=== PATIENT | male | born 1960 | race Caucasian/White ===

== ENCOUNTER 2017-10-04 10:25 | Inpatient (IN) ==
[~2017-10-04 10:25] MED LIST: ASPIRIN 325 MG TABLET PO ONE; DIAZEPAM 5 MG TABLET PO ONE; MAGNESIUM SULF RIDER 2 GM in PREMIX 1 EACH IV PRN; POTASSIUM CHLORIDE RIDER 10 MEQ in PREMIX 1 EACH IV PRN; diphenhydrAMINE CAP 25 MG CAPSULE PO ONE
[2017-10-04] MEDS: DEXTROSE 5% NACL 0.45% 1,000 ML IV SCH ×3 (11:30→21:51)
[2017-10-04 11:33] LABS: PT Patient Result 10.5 SECS
[2017-10-04] MEDS ORDERED: diphenhydrAMINE CAP 25 MG CAPSULE ONE (11:49)
[2017-10-04] MEDS ORDERED: DIAZEPAM 5 MG TABLET ONE (11:49)
[2017-10-04] MEDS ORDERED: HEPARIN/NACL 0.9% 2 UNITS/ML 1,000 ML IV ONE (13:05)
[2017-10-04] MEDS ORDERED: VERAPAMIL 5 MG/2 ML VIAL ONE (13:48)
[2017-10-04] MEDS ORDERED: fentaNYL 100 MCG/2 ML VIAL ONE (13:48)
[2017-10-04] MEDS ORDERED: MIDAZOLAM 2 MG/2 ML VIAL ONE (13:48)
[2017-10-04] MEDS ORDERED: NITROGLYCERIN DRIP 50 MG/250 ML BOTTLE IV ONE (13:48)
[2017-10-04] MEDS ORDERED: ENOXAPARIN 60 MG/0.6 ML SYRINGE ONE (14:19)
[2017-10-04] MEDS ORDERED: NITROGLYCERIN SL 0.4 MG TABLET SL PRN (15:14)
[2017-10-04] MEDS ORDERED: BISACODYL 5 MG TABLET PO PRN (15:35)
[2017-10-04] MEDS ORDERED: ACETAMINOPHEN 325 MG TABLET PO PRN (15:35)
[2017-10-04] MEDS ORDERED: ZALEPLON 5 MG CAPSULE PO PRN (15:35)
[2017-10-04] MEDS ORDERED: ONDANSETRON 4 MG/2 ML VIAL IV PRN (15:35)
[2017-10-04] MEDS: ENOXAPARIN 100 MG/ML SYRINGE SUBCUT SCH (17:35)
[2017-10-04] MEDS: METOPROLOL SUCCINATE XL 50 MG TABLET PO SCH (20:47)
[2017-10-04] MEDS: RANOLAZINE 500 MG TABLET PO SCH (20:47)
[2017-10-04] MEDS: PANTOPRAZOLE 40 MG TABLET PO SCH (20:47)
[2017-10-05] MEDS: DEXTROSE 5% NACL 0.45% 1,000 ML IV SCH ×2 (01:19→11:59)
[2017-10-05] MEDS: ENOXAPARIN 100 MG/ML SYRINGE SUBCUT SCH (05:27)
[2017-10-05 05:37] LABS: Basophils # 0.1 10*3/uL (0.0-0.2); Basophils % 0.6 % (0.0-0.8); Eosinophils # 0.6 10*3/uL (0.0-0.87); Eosinophils % 7.2 % (0.00-10.9); Hematocrit 43.9 VOL% (42.0-52.0); Hemoglobin 15.2 GM/DL (14.0-18.0); Immature Granulocytes % 0.4 %; Immature Granulocytes Absolute 0.03 #; Lymphocytes # 2.7 10*3/uL (1.4-4.0); Mean Corpuscular HGB Conc 34.6 GM/DL (32-36); Mean Corpuscular Hemoglobin 33 PG (27-34); Mean Corpuscular Volume 96.1 FL (87-102); Monocytes # 0.7 10*3/uL (0.11-0.8); Monocytes % 8.1 % (1.7-12.7); Neutrophils # 4.1 10*3/uL (1.4-7.4); Neutrophils % 50.7 % (38.7-73.9); Platelet Count 200 T/CUMM (130-400); Red Blood Count 4.57 MC/CUMM (3.8-5.5); Red Cell Distribution Width 13.4 % (9.3-17.3); White Blood Count 8.1 T/CUMM (4-12)
[2017-10-05] MEDS ORDERED: diphenhydrAMINE CAP 25 MG CAPSULE PO ONE (05:45)
[2017-10-05] MEDS ORDERED: DIAZEPAM 5 MG TABLET PO ONE (05:45)
[2017-10-05 06:11] LABS: Calcium 8.7 MG/DL (8.5-10.1); Osmolality,Calculated 283.1 MOS/KG (273-304)
[2017-10-05] MEDS: MULTIVITAMIN (CENTRUM) TABLET PO SCH (08:44)
[2017-10-05] MEDS: COENZYME Q10 100 MG CAPSULE PO SCH (08:44)
[2017-10-05] MEDS: RANOLAZINE 500 MG TABLET PO SCH ×2 (08:44→20:49)
[2017-10-05] MEDS: CHOLECALCIFEROL 1,000 UNIT TABLET PO SCH (08:44)
[2017-10-05] MEDS: ASPIRIN EC 81 MG TABLET PO SCH (08:44)
[2017-10-05] MEDS: METOPROLOL SUCCINATE XL 50 MG TABLET PO SCH ×2 (08:45→20:49)
[2017-10-05] MEDS: CLOPIDOGREL 75 MG TABLET PO SCH (08:45)
[2017-10-05] MEDS: amLODIPine 5 MG TABLET PO SCH (08:45)
[2017-10-05] MEDS: PITAVASTATIN 2 MG TABLET PO SCH (08:49)
[2017-10-05] MEDS: PANTOPRAZOLE 40 MG TABLET PO SCH ×2 (08:53→20:49)
[2017-10-05] MEDS ORDERED: COENZYME Q10 100 MG PO SCH (09:00)
[2017-10-05] MEDS ORDERED: ISOSORBIDE MONONITRATE 30 MG TABLET PO SCH (09:00)
[2017-10-05] MEDS ORDERED: diphenhydrAMINE CAP 50 MG CAPSULE ONE (12:24)
[2017-10-05] MEDS ORDERED: DIAZEPAM 5 MG TABLET ONE (12:25)
[2017-10-05] MEDS ORDERED: HEPARIN/NACL 0.9% 2 UNITS/ML 1,000 ML IV ONE (12:40)
[2017-10-05] MEDS ORDERED: MIDAZOLAM 2 MG/2 ML VIAL ONE ×2 (12:40→13:52)
[2017-10-05] MEDS ORDERED: fentaNYL 100 MCG/2 ML VIAL ONE (12:40)
[2017-10-05] MEDS ORDERED: BIVALIRUDIN 250 MG VIAL IV ONE ×2 (12:42→13:45)
[2017-10-05] MEDS ORDERED: HEPARIN/NACL 0.9% 2 UNITS/ML 500 ML IV ONE (13:03)
[2017-10-05] MEDS ORDERED: CLOPIDOGREL 300 MG TABLET ONE (14:16)
[2017-10-05] MEDS ORDERED: SODIUM CHLORIDE 0.45% 1,000 ML IV SCH (15:00)
[2017-10-06 06:11] LABS: Basophils # 0.1 10*3/uL (0.0-0.2); Basophils % 0.5 % (0.0-0.8); Eosinophils # 0.5 10*3/uL (0.0-0.87); Eosinophils % 4.7 % (0.00-10.9); Hematocrit 43.4 VOL% (42.0-52.0); Hemoglobin 14.8 GM/DL (14.0-18.0); Immature Granulocytes % 0.5 %; Immature Granulocytes Absolute 0.05 #; Lymphocytes % 20.1 % (21.2-54.2); Mean Corpuscular HGB Conc 34.1 GM/DL (32-36); Mean Corpuscular Hemoglobin 33 PG (27-34); Mean Corpuscular Volume 95.6 FL (87-102); Mean Platelet Volume 9.8 FL (9.6-12.0); Monocytes # 0.8 10*3/uL (0.11-0.8); Monocytes % 7.9 % (1.7-12.7); Neutrophils # 6.5 10*3/uL (1.4-7.4); Neutrophils % 66.3 % (38.7-73.9); Platelet Count 201 T/CUMM (130-400); Red Blood Count 4.54 MC/CUMM (3.8-5.5); Red Cell Distribution Width 13.4 % (9.3-17.3); White Blood Count 9.8 T/CUMM (4-12)
[2017-10-06 06:32] LABS: Calcium 8.4 MG/DL (8.5-10.1); Osmolality,Calculated 280.3 MOS/KG (273-304); Potassium 4.1 MMOL/L (3.5-5.1)
[2017-10-06] MEDS: COENZYME Q10 100 MG CAPSULE PO SCH (08:29)
[2017-10-06] MEDS: PITAVASTATIN 2 MG TABLET PO SCH (08:29)
[2017-10-06] MEDS: PANTOPRAZOLE 40 MG TABLET PO SCH (08:30)
[2017-10-06] MEDS: MULTIVITAMIN (CENTRUM) TABLET PO SCH (08:30)
[2017-10-06] MEDS: CHOLECALCIFEROL 1,000 UNIT TABLET PO SCH (08:30)
[2017-10-06] MEDS: RANOLAZINE 500 MG TABLET PO SCH (08:30)
[2017-10-06] MEDS: CLOPIDOGREL 75 MG TABLET PO SCH (08:30)
[2017-10-06] MEDS: METOPROLOL SUCCINATE XL 50 MG TABLET PO SCH (08:30)
[2017-10-06] MEDS: amLODIPine 5 MG TABLET PO SCH (08:30)
[2017-10-06] MEDS: ASPIRIN EC 81 MG TABLET PO SCH (08:30)
[2017-10-06 08:34] VITALS: BP 110/80
== END 2017-10-06 12:40 | disposition home or self-care (01) | DRG 246 ==
LOC: N.TELEN 10:25 → N.CL 10:25 → N.TELEN 15:57
PROVIDERS: ADMIT Internal Medicine Interventional Cardiology; ATTEND Internal Medicine Cardiovascular Disease
PROC: CLCCHCL (ICD-10-PCS; 2017-10-04 15:15)

== ENCOUNTER 2018-01-24 09:26 | Observation (INO) ==
[2018-01-24 10:05] LABS: Basophils # 0.1 10*3/uL (0.0-0.2); Basophils % 0.8 % (0.0-0.8); Eosinophils # 0.5 10*3/uL (0.0-0.87); Eosinophils % 4.7 % (0.00-10.9); Hematocrit 44.2 VOL% (42.0-52.0); Hemoglobin 15.5 GM/DL (14.0-18.0); Immature Granulocytes % 0.4 %; Immature Granulocytes Absolute 0.04 #; Lymphocytes # 2.6 10*3/uL (1.4-4.0); Lymphocytes % 25.1 % (21.2-54.2); Mean Corpuscular HGB Conc 35.1 GM/DL (32-36); Mean Corpuscular Hemoglobin 32 PG (27-34); Mean Corpuscular Volume 90.8 FL (87-102); Mean Platelet Volume 9.2 FL (9.6-12.0); Monocytes # 1.2 10*3/uL (0.11-0.8); Monocytes % 11.9 % (1.7-12.7); Neutrophils # 5.9 10*3/uL (1.4-7.4); Neutrophils % 57.1 % (38.7-73.9); Platelet Count 220 T/CUMM (130-400); Red Blood Count 4.87 MC/CUMM (3.8-5.5); Red Cell Distribution Width 12.4 % (9.3-17.3); White Blood Count 10.3 T/CUMM (4-12)
[2018-01-24 10:18] LABS: INR 0.9; Partial Thromboplastin Time 26.4 SECS (0-40)
[2018-01-24 10:53] LABS: Alanine Aminotransferase 59 U/L (16-61); Albumin 3.9 G/DL (3.4-5.0); Alkaline Phosphatase 104 U/L (45-117); Aspartate Amino Transferase 37 U/L (0-37); Blood Urea Nitrogen 13 MG/DL (7-18); Glucose 115 MG/DL (74-106); Osmolality,Calculated 275.7 MOS/KG (273-304); Potassium 3.9 MMOL/L (3.5-5.1); Sodium 138 MMOL/L (136-145); Total Protein 8.7 G/DL (6.4-8.3); Troponin I < 0.015 NG/ML (0.00-0.045)
[2018-01-24 10:55] LABS: Apearance,Urine CLEAR (Clear); Bilirubin,Urine Negative (Negative); Blood, Urine Negative (Negative); Glucose,Urine (UA) Negative (Negative); Ketones,Urine Negative (Negative); Nitrite,Urine Negative (Negative); Protein,Urine Negative; RBC,Urine <1 /HPF (0-4); Urine Color Yellow (Yellow); Urine Specific Gravity 1.016 (1.001-1.035); Urine Urobilinogen < 2.0 EU/DL (0.2-1.0); WBC,Urine 1 /HPF (0-6)
[2018-01-24 11:00] LABS: Barbiturates Screen,Urine Negative (Negative); Benzodiazepines Screen,Urine Negative (Negative); Cannabinoid Screen,Urine Negative (Negative); Opiate Screen,Urine Negative (Negative); Phencyclidine Screen,Urine Negative (Negative)
[2018-01-24] MEDS ORDERED: MAGNESIUM SULF RIDER 4 GM in PREMIX 1 EACH IV PRN ×2 (14:19→15:31)
[2018-01-24] MEDS ORDERED: BISACODYL 5 MG TABLET PO PRN (14:19)
[2018-01-24] MEDS ORDERED: diphenhydrAMINE CAP 25 MG CAPSULE PO PRN (14:19)
[2018-01-24] MEDS ORDERED: MAGNESIUM SULF RIDER 2 GM in PREMIX 1 EACH IV PRN (14:19)
[2018-01-24] MEDS ORDERED: DOCUSATE SODIUM 100 MG CAPSULE PO PRN (14:19)
[2018-01-24] MEDS ORDERED: ONDANSETRON 4 MG/2 ML VIAL IV PRN (14:19)
[2018-01-24] MEDS ORDERED: ZALEPLON 5 MG CAPSULE PO PRN (14:19)
[2018-01-24] MEDS ORDERED: POTASSIUM CHLORIDE 20 MEQ TABLET PO PRN (14:19)
[2018-01-24] MEDS ORDERED: ACETAMINOPHEN 325 MG TABLET PO PRN (14:19)
[2018-01-24] MEDS ORDERED: guaiFENesin/DM ER 600-30 MG TABLET PO PRN (14:19)
[2018-01-24] MEDS ORDERED: ENOXAPARIN 40 MG/0.4 ML SYRINGE SUBCUT SCH ×2 (14:30→21:00)
[2018-01-24] MEDS ORDERED: NITROGLYCERIN SL 0.4 MG TABLET SL PRN ×2 (14:55→15:31)
[2018-01-24 17:02] LABS: Troponin I < 0.015 NG/ML (0.00-0.045)
[2018-01-24] MEDS: PANTOPRAZOLE 40 MG TABLET PO SCH (18:34)
[2018-01-24] MEDS ORDERED: PITAVASTATIN CALCIUM 4 MG PO SCH (21:00)
[2018-01-24] MEDS ORDERED: ISOSORBIDE MONONITRATE 30 MG TABLET PO SCH ×2 (21:00)
[2018-01-24] MEDS ORDERED: METOPROLOL SUCCINATE XL 50 MG TABLET PO SCH (21:00)
[2018-01-24] MEDS ORDERED: PITAVASTATIN 2 MG TABLET PO SCH (21:00)
[2018-01-24] MEDS ORDERED: ASPIRIN EC 81 MG TABLET PO SCH ×2 (21:00)
[2018-01-24] MEDS ORDERED: CLOPIDOGREL 75 MG TABLET PO SCH ×2 (21:00)
[2018-01-24] MEDS ORDERED: amLODIPine 5 MG TABLET PO SCH ×2 (21:00)
[2018-01-24] MEDS: METOPROLOL SUCCINATE XL 50 MG TABLET PO SCH (21:54)
[2018-01-24] MEDS: MAGNESIUM HYDROXIDE SUSP 30 ML UDCUP PO SCH (21:54)
[2018-01-25 05:41] LABS: Basophils # 0.1 10*3/uL (0.0-0.2); Basophils % 0.5 % (0.0-0.8); Eosinophils # 0.5 10*3/uL (0.0-0.87); Eosinophils % 4.8 % (0.00-10.9); Hematocrit 42.7 VOL% (42.0-52.0); Hemoglobin 14.8 GM/DL (14.0-18.0); Immature Granulocytes % 0.3 %; Immature Granulocytes Absolute 0.03 #; Lymphocytes # 2.8 10*3/uL (1.4-4.0); Lymphocytes % 26.8 % (21.2-54.2); Mean Corpuscular HGB Conc 34.7 GM/DL (32-36); Mean Corpuscular Hemoglobin 32 PG (27-34); Mean Platelet Volume 9.4 FL (9.6-12.0); Monocytes % 9.9 % (1.7-12.7); Neutrophils # 6.1 10*3/uL (1.4-7.4); Neutrophils % 57.7 % (38.7-73.9); Platelet Count 196 T/CUMM (130-400); Red Blood Count 4.69 MC/CUMM (3.8-5.5); Red Cell Distribution Width 12.5 % (9.3-17.3); White Blood Count 10.5 T/CUMM (4-12)
[2018-01-25 06:02] LABS: Calcium 8.7 MG/DL (8.5-10.1)
[2018-01-25 08:10] VITALS: BP 112/73
[2018-01-25] MEDS: PANTOPRAZOLE 40 MG TABLET PO SCH (08:25)
[2018-01-25] MEDS: METOPROLOL SUCCINATE XL 50 MG TABLET PO SCH (08:25)
[2018-01-25] MEDS: MAGNESIUM HYDROXIDE SUSP 30 ML UDCUP PO SCH (08:28)
[2018-01-25] MEDS ORDERED: UBIDECARENONE 200 MG PO SCH (09:00)
[2018-01-25] MEDS ORDERED: COENZYME Q10 100 MG CAPSULE PO SCH (09:00)
[2018-01-25] MEDS ORDERED: MULTIVITAMIN PO SCH (09:00)
[2018-01-25] MEDS ORDERED: MULTIVITAMIN (CENTRUM) TABLET PO SCH (09:00)
== END 2018-01-25 09:57 | disposition home or self-care (01) ==
LOC: N.EDINP 09:26 → N.ED 09:26 → N.ICU 18:01
PROVIDERS: ADMIT Internal Medicine Interventional Cardiology; ATTEND Internal Medicine Interventional Cardiology